=== PATIENT | female | born 1975 | race Caucasian/White ===

== ENCOUNTER 2018-09-30 05:45 | Day surgery (SDC) | payer BC ==
[~2018-09-30 05:45] MED LIST: Buffered Lidocaine 0.9% SYRIN* 5 ML/SYR SYRINGE INTRADERM ONE
[2018-09-30] MEDS ORDERED: Famotidine IV* 10 MG/ML 2 ML (20 mg) IV ONE (06:00)
[2018-09-30] MEDS ORDERED: Dexamethasone IV* 4 MG/ML 1 ML (4 MG) IV SLOW PU ONE (06:00)
[2018-09-30] MEDS ORDERED: Dexamethasone IV* 4 MG/ML 1 ML (4 MG) ONE (06:15)
[2018-09-30] MEDS ORDERED: Famotidine IV* 10 MG/ML 2 ML (20 mg) ONE (06:15)
[2018-09-30] MEDS ORDERED: ceFAZolin 2 GM PREMIX in ORs 2 GM/50 ML BAG IVPB ONE (06:15)
[2018-09-30] MEDS ORDERED: fentaNYL* 50 MCG/ML 2 ML VIAL (100 MCG VIAL) ONE ×2 (06:15→07:11)
[2018-09-30] MEDS ORDERED: Bupivacaine 0.5% W/EPI SDV* 30 ML VIAL ONE (06:47)
[2018-09-30] MEDS ORDERED: HYDROmorphone INJ1* 1 MG/ML SYRINGE ONE (07:05)
[2018-09-30 07:07] LABS: Hematocrit 40 % (35-47); Hemoglobin 13.4 g/dl (12.0-16.0); Mean Corpuscular HGB Conc 33 g/dl (31-36); Mean Corpuscular Hemoglobin 31 pg (27-31); Mean Corpuscular Volume 93 fL (80-97); Mean Platelet Volume 6.8 fL (7.4-10.4); Platelet Count 287 10^3/ul (150-450); Red Blood Count 4.33 10^6/ul (4.00-5.40); Red Cell Distribution Width 13 % (10.5-15); White Blood Count 5.8 10^3/ul (3.5-10.8)
[2018-09-30] MEDS ORDERED: Propofol* 10 MG/ML 20 ML BTL IV PUSH ONE (07:11)
[2018-09-30] MEDS ORDERED: Midazolam* 1 MG/ML 2 ML VIAL (2 MG) ONE (07:11)
[2018-09-30] MEDS ORDERED: Lidocaine 2% PF * 5 ML VIAL ONE (07:11)
[2018-09-30] MEDS ORDERED: HYDROcodone/ACETAMIN 5-325 MG* 1 TAB PO PRN (07:24)
[2018-09-30] MEDS ORDERED: fentaNYL* 50 MCG/ML 2 ML VIAL (100 MCG VIAL) IV PRN (07:24)
[2018-09-30] MEDS ORDERED: Naloxone* 0.4 MG/ML 1 ML VIAL IV PRN (07:24)
[2018-09-30] MEDS ORDERED: oxyCODONE/Acetamin 5/325 MG* TAB PO PRN (07:24)
[2018-09-30] MEDS ORDERED: DiMENhydriNATE IV* 50 MG/ML VIAL IV PUSH PRN (07:24)
[2018-09-30] MEDS ORDERED: Rocuronium* 10 MG/ML VIAL ONE (07:43)
[2018-09-30] MEDS ORDERED: Ketorolac INJ* 30 MG/ML 1 ML VIAL ONE (07:59)
[2018-09-30] MEDS ORDERED: Ondansetron INJ* 2 MG/ML VIAL ONE (08:15)
[2018-09-30] MEDS ORDERED: Atropine 1MG/ML INJ* 1 ML VIAL ONE (08:23)
[2018-09-30] MEDS ORDERED: Sugammadex * 200 MG/2 ML VIAL IV PUSH ONE (08:29)
[2018-09-30] MEDS ORDERED: Ibuprofen TAB* 600 MG PO PRN (09:05)
[2018-09-30] MEDS ORDERED: oxyCODONE/Acetamin 5/325 MG* TAB ONE (09:53)
[2018-09-30 10:52] VITALS: BP 101/64
--- NOTE | 2018-10-01 02:00 | OP ---
OPERATIVE REPORT: DATE OF OPERATION: 09/30/18 DATE OF : 73 SURGEON: Dr. Ferrara. POTATO GRADER: Dr. Herrera. ANESTHESIOLOGIST: Dr. Ortez. ANESTHESIA: General endotracheal anesthesia. PRE-OP DIAGNOSES: Encounter for intrauterine device removal and encounter for sterilization. POST-OP DIAGNOSES: Encounter for intrauterine device removal and encounter for sterilization. OPERATIVE PROCEDURE: Removal of IUD and laparoscopic bilateral tubal interruption and biopsy of right fallopian tube fimbria. FINDINGS: Midline small uterus. The IUD was removed, examined and found to be intact. Both ovaries appeared normal. The left fallopian tube appeared normal. The right fallopian tube appeared normal except for a white patch like area on the underside of the fimbria. The area appeared well demarcated. COMPLICATIONS: None. COUNTS: Sponge, lap, and needle count correct x2. CONDITION: The patient was brought to the recovery room awake and in a stable condition. DESCRIPTION OF PROCEDURE: The patient was brought to the operating room. When general anesthesia was found to be adequate, a time-out was performed. The speculum was placed in the vagina. The IUD strings were visualized. The strings were grasped and the IUD was easily removed with 1 pull. It was examined and found to be intact. A Plummer catheter was placed under sterile condition. The patient had already been prepped and draped in the usual sterile fashion in the dorsal lithotomy position. A 10-mm infraumbilical incision was made after Marcaine was instilled. Under direct visualization, the fascia was identified, grasped between 2 Cyrus clamps and entered with a scalpel. The blunt trocar was placed. A 5-mm trocar was placed 2 fingerbreadths above the pubic symphysis in the midline. The 5- mm trocar was placed under direct visualization after Marcaine had been instilled and a 5-mm incision was made. Using the blunt probe, the uterus, ovaries, and fallopian tubes were examined with the above findings noted. The Kleppinger was introduced and the right fallopian tube was followed out to the fimbriated end and cauterized in 3 separate locations. Attention was then turned to the patient's left fallopian tube, which was also followed out to the fimbriated end and cauterized in 3 separate locations. Attention was then turned to the white area on the right fallopian tube fimbria. The area was excised and sent to Pathology. Hemostasis was achieved with the Kleppinger. Again, hemostasis was assured. The 5-mm trocar was removed under direct visualization. The 10- mm trocar was removed. The fascia was identified and closed using 0 Vicryl. No defect was palpated. The skin was closed with 4-0 Vicryl and glue and the patient was brought to the recovery room awake and in stable condition. Plummer catheter 300 cc of clear urine. The Plummer was removed before leaving the operating room. [id number] #: [id number] [facility]
== END 2018-09-30 11:14 | disposition home or self-care (01) ==
LOC: OR 05:45
PROVIDERS: ATTEND Obstetrics & Gynecology
DX: Z30.2 Encounter for sterilization (principal); E03.9 Hypothyroidism, unspecified; F41.8 Other specified anxiety disorders
CPT/HCPCS: 36415; 81025; 85027; 86850; 86900; 86901; 88305; 88342; A9270-GY; J0461; J0690; J1100; J1170; J1885; J2250; J2405; J2704; J3010